=== PATIENT | male | born 1975 | race Caucasian/White ===

== ENCOUNTER 2021-05-21 23:02 | Emergency (ER) | payer OTHER ==
[~2021-05-21] VITALS: Ht 193 cm; Wt 110.3 kg
--- NOTE | 2021-05-22 00:23 | PHYS DOC ---
General Adult EDM: Chief Complaint: CHEST PAIN HPI: HPI: " I woke up on Monday with a crick in my neck.. and it gradually got worse an worse until ..it started running down into my Lt. shoulder and arm.. maybe a little in my Lt upper chest... "..I do have a sore throat.. too..." Patient is a 46 year old male who presents with above hx and complaints Lt arm, chest and neck since awaken on Monday. Patient denies any history of neck injury. Patient denies any recent travel. No specific ill contacts. Patient denies any history of trauma. No history immunosuppression. Patient does smoke. Patient states his throats been also very sore since Monday. Has not had COVID vaccination. Not had flu vaccination. Has not had Pneumovax. Patient does drink alcohol daily. Patient normally follows with Dr. Hickman Review of Systems: Review of Systems: Constitutional: Denies fever or chills Eyes: Denies change in visual acuity HENT: Complains of sore throat Respiratory: Denies cough or shortness of breath Cardiovascular: Denies chest pain or edema GI: Denies abdominal pain, nausea, vomiting, bloody stools or diarrhea : Denies dysuria Musculoskeletal: Complains of left neck and shoulder pain Integument: Denies rash Neurologic: Denies headache, focal weakness or sensory changes Endocrine: Denies polyuria or polydipsia Lymphatic: Denies swollen glands Psychiatric: Denies depression or anxiety Family History: Family History: Noncontributory to presentation Current Medications: Current Meds: See nursing for home meds Allergies: Allergies: Allergies Coded Allergies Type Severity Reaction Last Updated Verified No Known Drug Allergies 05/22/21 No Physical Exam: PE: Constitutional: Moderate acute distress, non-toxic appearance. [] HENT: Normocephalic, atraumatic, bilateral external ears normal, oropharynx moist, injected pharynx no oral exudates, nose normal. [] Eyes: PERRLA, EOMI, conjunctiva normal, no discharge. [] Neck: Decreased range of motion, left trapezius spasms and tenderness, no stri анна. [] Cardiovascular:Heart rate regular rhythm, no murmur [] Lungs & Thorax: Bilateral breath sounds equal apex with scattered wheezes throughout on Auscultation [] Abdomen: Bowel sounds normal, soft, no tenderness, no masses, no pulsatile masses. [] Skin: Warm, dry, no erythema, no rash. [] Back: No tenderness, no CVA tenderness. [] Extremities: No tenderness, no cyanosis, no clubbing, ROM intact, no edema. [] No cording appreciated Neurologic: Alert and oriented X 3, normal motor function, normal sensory function, no focal deficits noted. [] Psychologic: Affect normal, judgement normal, mood normal. [] EKG: EKG: My interpretation EKG shows a sinus rhythm at 89 bpm. No acute morphology. Time of EKG is 00 18 minutes [] Radiology/Procedures: Radiology/Procedures: [[address] [address] IMAGING REPORT Signed PATIENT: MISSY ROTHMAN ACCOUNT: [id number] : 1975 LOCATION: ER AGE: 46 SEX: M EXAM STATUS: REG ER ORD. PHYSICIAN: RIK MEJIAS MD REASON: cervical neuropathy symptoms PROCEDURE: CT CERVICAL SPINE WO CONTRAST CT C-Spine without contrast: Clinical History: Reason: cervical neuropathy symptoms / Spl. Instructions: / History: Technique: Axial helical images of the cervical spine were obtained without contrast, axial coronal and sagittal reconstruction was performed. Findings: There is no loss of vertebral body stature. There is no prevertebral soft tissue swelling. The vertebral bodies are well aligned. The C1-C2 relationship is normal. The visualized osseous structures appear normal. 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 There is a posterior disc bulge at C6-C7 which is eccentric to the left and causes flattening of CSF anterior to the cord is mild impression on the anterior surface the cervical cord on the left and crowding the lateral recess on the left. Impression: C6-C7 disc bulge causing central stenosis and likely compressing of the C7 nerve root before it enters the neuroforamen. No acute findings. Clinical correlation suggested. End impression PQRS Compliance Statement: One or more of the following individualized dose reduction techniques were utilized for this examination: 1. Automated exposure control 2. Adjustment of the mA and/or kV according to patient size 3. Use of iterative reconstruction technique Electronically signed by: Jermaine Sullivan III, MD (05/22/2021 1:28 AM) [facility] DICTATED AND SIGNED BY: JERMAINE SULLIVAN III, MD DATE: 05/22/21 0124 CC: RIK MEJIAS MD; KENDRICK HICKMAN MD ~MTH0 0 ][place] [address] IMAGING REPORT Signed PATIENT: MISSY ROTHMAN ACCOUNT: [id number] : 1975 LOCATION: ER AGE: 46 SEX: M EXAM STATUS: REG ER ORD. PHYSICIAN: RIK MEJIAS MD REASON: cp PROCEDURE: CHEST PA & LATERAL XR CHEST 2V Technique: PA and lateral views of the chest were obtained. Clinical History: Reason: cp / Spl. Instructions: / History: Comparison: None. Findings: The heart and pulmonary vasculature appear within normal limits. The lungs are clear. The pleural margins are clear. Impression: No acute chest process is seen. Electronically signed by: Jermaine Sullivan III, MD (05/22/2021 1:46 AM) [facility] DICTATED AND SIGNED BY: JERMAINE SULLIVAN III, MD DATE: 05/22/21 0145 CC: RIK MEJIAS MD; KENDRICK HICKMAN MD ~MTH0 0 Heart Score: C/O Chest Pain: Yes HEART Score for Chest Pain: HEART Score for Chest Pain Response (Comments) Value History Slighlty/Non-Suspicious 0 ECG Normal 0 Age < 45 0 Risk Factors 1 or 2 Risk Factors 1 Troponin < Normal Limit 0 Total 1 Risk Factors: Risk Factors: DM, Current or recent (<one month) smoker, HTN, HLP, family history of CAD, obesity. Risk Scores: Score 0 - 3: 2.5% MACE over next 6 weeks - Discharge Home Score 4 - 6: 20.3% MACE over next 6 weeks - Admit for Clinical Observation Score 7 - 10: 72.7% MACE over next 6 weeks - Early Invasive Strategies Course & Med Decision Making: Course & Med Decision Making Pertinent Labs and Imaging studies reviewed. (See chart for details) Pt declines second EKG and Trop. Patient gargle Listerine 3-4 times a day. Patient take Keflex 500 mg 3 times a day. Patient take Tylenol and ibuprofen for pain. Patient follow-up primary care. Patient return if any concerns. Patient encouraged to reduce his alcohol intake. Patient to follow-up with neurosurgery to review CT findings of cervical neuropathy particularly at C6 and 7 level. Patient to follow-up with Dr. Hickman. Patient take Keflex 10 mg for 3 times a day for muscle spasms. Impression: 1. 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 Pharyngitis- suspect strep 3. Tobacco use 4. Alcohol use alcohol level 174 5. Mild elevation in AST at 112 and ALT 126 [] Dragon Disclaimer: Dragon Disclaimer: This electronic medical record was generated, in whole or in part, using a voice recognition dictation system. Departure Departure: Referrals: KENDRICK HICKMAN MD (PCP) Scripts Cyclobenzaprine Hcl (CYCLOBENZAPRINE HCL) 10 Mg Tablet 10 MG PO TID for muscle spasms, #30 TAB Prov: RIK MEJIAS MD 05/22/21 Cephalexin (KEFLEX) 500 Mg Capsule 500 MG PO TID for strept.infection for 7 Days, #21 CAP Prov: RIK MEJIAS MD 05/22/21 Dragon Disclaimer This chart was dictated in whole or in part using Voice Recognition software in a busy, high-work load, and often noisy Emergency Department environment. It may contain unintended and wholly unrecognized errors or omissions. Dragon Disclaimer This chart was dictated in whole or in part using Voice Recognition software in a busy, high-work load, and often noisy Emergency Department environment. It may contain unintended and wholly unrecognized errors or omissions. RIK MEJIAS MD May 22, 2021 00:23
[2021-05-22] MEDS ORDERED: cefTRIAXone SODIUM 1 GM VIAL ONE (00:57)
[2021-05-22] MEDS ORDERED: IV NORMAL SALINE 50ML 50 ML ONE (00:57)
[2021-05-22] MEDS ORDERED: ORPHENADRINE CITRATE 60 MG/2 ML VIAL. IV ONE (01:00)
[2021-05-22] MEDS ORDERED: KETOROLAC 30 MG/ML VIAL. IVP ONE (01:00)
[2021-05-22] MEDS ORDERED: MORPHINE SULFATE 10 MG/ML SYRINGE. SQ ONE (01:00)
[2021-05-22 01:27] LABS: CALCIUM 8.7 mg/dL (8.5-10.1); CREATININE 0.8 mg/dL (0.7-1.3); GFR 104.1
[2021-05-22] MEDS ORDERED: CEPH500C PO (01:27)
[2021-05-22 01:28] LABS: BARBITURATES NEG (NEG); BENZODIAZEPINES NEG (NEG); CANNABINOIDS NEG (NEG); COCAINE NEG (NEG); METHADONE NEG (NEG); OPIATES NEG (NEG); PHENCYCLIDINE NEG (NEG)
--- NOTE | 2021-05-22 01:30 | RAD ---
CT C-Spine without contrast: Clinical History: Reason: cervical neuropathy symptoms / Spl. Instructions: / History: Technique: Axial helical images of the cervical spine were obtained without contrast, axial coronal and sagittal reconstruction was performed. Findings: There is no loss of vertebral body stature. There is no prevertebral soft tissue swelling. The vert ebral bodies are well aligned. The C1-C2 relationship is normal. The visualized osseous structures a ppear normal. 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 There is a posterior disc bulge at C6-C7 which is eccentric to the left and causes flattening of CSF anterior to the cord is mild impression on the anterior surface the cervical cord on the left and veterinary microbiologist wding the lateral recess on the left. Impression: C6-C7 disc bulge causing central stenosis and likely compressing of the C7 nerve root before it enter s the neuroforamen. No acute findings. Clinical correlation suggested. End impression PQRS Compliance Statement: One or more of the following individualized dose reduction techniques were utilized for this examinat ion: 1. Automated exposure control 2. Adjustment of the mA and/or kV according to patient size 3. Use of iterative reconstruction technique Electronically signed by: Ascencion Branham III, MD (05/22/2021 1:28 AM) [facility]
[2021-05-22 01:32] LABS: ALBUMIN 4.1 g/dL (3.4-5.0); ALBUMIN/GLOBULIN RATIO 1.2 (1.0-1.7); TOTAL BILIRUBIN 0.4 mg/dL (0.2-1.0); TOTAL PROTEIN 7.5 g/dL (6.4-8.2)
[2021-05-22 01:34] LABS: BACTERIA,URINE FEW /HPF (0-FEW); BILIRUBIN,URINE NEG (NEG); CLARITY,URINE CLEAR; COLOR,URINE YELLOW; GLUCOSE,URINE NEG (NEG); NITRITE,URINE NEG (NEG); RBC,URINE 0 /HPF (0-2); SQUAMOUS EPITHELIAL CELL,UR OCC /LPF; UROBILINOGEN,URINE 0.2 mg/dL (0.2 mg/dL)
[2021-05-22 01:35] LABS: BASO # 0.1 x10^3/uL (0.0-0.2); BASO % 1 % (0-3); EOS # 0.1 x10^3/uL (0.0-0.7); EOS % 2 % (0-3); HEMATOCRIT 45.4 % (39.0-53.0); HEMOGLOBIN 15.9 g/dL (13.0-17.5); LYMPH # 3.1 x10^3/uL (1.0-4.8); LYMPH % 48 % (24-48); MEAN CORPUSCULAR HEMOGLOBIN 34 pg (25-35); MEAN CORPUSCULAR HGB CONC 35 g/dL (31-37); MEAN CORPUSCULAR VOLUME 96 fL (79-100); MONO # 0.7 x10^3/uL (0.0-1.1); MONO % 12 % (0-9); NEUT # 2.4 x10^3uL (1.8-7.7); NEUT % 38 % (31-73); PLATELET COUNT 149 x10^3/uL (140-400); RED BLOOD COUNT 4.72 x10^6/uL (4.30-5.70); RED CELL DISTRIBUTION WIDTH 14.2 % (11.5-14.5); WHITE BLOOD COUNT 6.4 x10^3/uL (4.0-11.0)
[2021-05-22 01:36] LABS: AMPHETAMINE/METHAMPHETAMINE NEG (NEG)
--- NOTE | 2021-05-22 01:48 | RAD ---
XR CHEST 2V Technique: PA and lateral views of the chest were obtained. Clinical History: Reason: cp / Spl. Instructions: / History: Comparison: None. Findings: The heart and pulmonary vasculature appear within normal limits. The lungs are clear. The pleural ma rgins are clear. Impression: No acute chest process is seen. Electronically signed by: Ascencion Branham III, MD (05/22/2021 1:46 AM) [facility]
[2021-05-22 01:49] LABS: INFLUENZA A PATIENT NEGATIVE (NEGATIVE); INFLUENZA B PATIENT NEGATIVE (NEGATIVE)
[2021-05-22] MEDS ORDERED: IV RINGERS SOLUTION,LACTATED 1,000 ML IV ONE (02:00)
[2021-05-22] MEDS ORDERED: CYCL10TA19 PO (02:25)
[2021-05-22 02:35] VITALS: BP 160/94
--- NOTE | 2021-05-22 04:05 | EKG ---
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
== END 2021-05-22 02:40 | disposition home or self-care (01) ==
LOC: ER 23:02
DX: M54.12 Radiculopathy, cervical region (principal); J02.9 Acute pharyngitis, unspecified; F10.10 Alcohol abuse, uncomplicated; R74.9 Abnormal serum enzyme level, unspecified; Z20.822 Contact with and (suspected) exposure to COVID-19; Y90.6 Blood alcohol level of 120-199 mg/100 ml
CPT/HCPCS: 36415; 71046; 72125; 80053; 80307; 81001; 84484; 85025; 87070; 87426; 87804; 87880; 93005; 96365; 96372; 96375; 99285; C9803; G0480; J0696; J1885; J2270; J2360; J7120; U0003

== ENCOUNTER 2021-06-03 10:39 | Emergency (ER) | payer OTHER ==
[~2021-06-03] VITALS: Ht 193 cm; Wt 110.3 kg
[~2021-06-03 10:39] MED LIST: CEPH500C PO; CYCL10TA19 PO
[2021-06-03] MEDS ORDERED: ASPIRIN CHEWABLE 81 MG TABLET. PO ONE (11:15)
[2021-06-03 11:54] LABS: BASO # 0.1 x10^3/uL (0.0-0.2); BASO % 1 % (0-3); EOS # 0.2 x10^3/uL (0.0-0.7); EOS % 2 % (0-3); HEMATOCRIT 50.7 % (39.0-53.0); HEMOGLOBIN 17.5 g/dL (13.0-17.5); LYMPH % 29 % (24-48); MEAN CORPUSCULAR HEMOGLOBIN 34 pg (25-35); MEAN CORPUSCULAR HGB CONC 35 g/dL (31-37); MEAN CORPUSCULAR VOLUME 98 fL (79-100); MONO # 1.3 x10^3/uL (0.0-1.1); MONO % 13 % (0-9); NEUT # 5.7 x10^3uL (1.8-7.7); NEUT % 55 % (31-73); PLATELET COUNT 210 x10^3/uL (140-400); RED BLOOD COUNT 5.17 x10^6/uL (4.30-5.70); RED CELL DISTRIBUTION WIDTH 14.1 % (11.5-14.5); WHITE BLOOD COUNT 10.3 x10^3/uL (4.0-11.0)
--- NOTE | 2021-06-03 12:30 | RAD ---
EXAMINATION: CT HEAD/BRAIN WO CLINICAL HISTORY: Sudden onset dizziness with headache TECHNIQUE: Serial axial images without IV contrast were obtained from the vertex to the foramen magnu m. CT Dose Reduction Employed: One or more of the following individualized dose reduction techniques wer e utilized for this examination: 1. Automated exposure control 2. Adjustment of the mA and/or kV ac cording to patient size 3. Use of iterative reconstruction technique. COMPARISON: None FINDINGS: Acute Change: No evidence of an acute infarct or other acute parenchymal process. Hemorrhage: No evidence of acute intracranial hemorrhage. Mass Lesion/Mass Effect: No evidence of intracranial mass or extraaxial fluid collection. No signific ant mass effect. Parenchyma: Parenchyma within normal limits for age. Ventricles: Ventricles within normal limits for age. Paranasal Sinuses and Skull Base: Visualized paranasal sinuses clear. Visualized skull base and soft tissues unremarkable. IMPRESSION: No evidence of acute intracranial abnormality. Electronically signed by: Milo King DO (06/03/2021 12:27 PM) [id number]
--- NOTE | 2021-06-03 12:37 | RAD ---
EXAM: AP View of the chest DATE: 06/03/2021 12:04 PM INDICATION: Reason: Chest tightness / Spl. Instructions: / History: COMPARISON: 05/22/2021 FINDINGS: The heart is not enlarged. Mediastinal and hilar contours are normal. No focal parenchymal airspace opacity. No pleural effusion or pneumothorax. IMPRESSION: 1. No radiographic evidence for acute cardiopulmonary process. Electronically signed by: Ney Avalos MD (06/03/2021 12:35 PM) [id number]
[2021-06-03 12:38] LABS: ANION GAP 9 (6-14); BLOOD UREA NITROGEN 20 mg/dL (8-26); BUN/CREATININE RATIO 22 (6-20); CALCIUM 9.6 mg/dL (8.5-10.1); CARBON DIOXIDE 25 mmol/L (21-32); CHLORIDE 102 mmol/L (98-107); CREATININE 0.9 mg/dL (0.7-1.3); GFR 90.8; GLUCOSE 118 mg/dL (70-99); POTASSIUM 3.9 mmol/L (3.5-5.1); SODIUM 136 mmol/L (136-145)
[2021-06-03 12:54] LABS: ALBUMIN 4.2 g/dL (3.4-5.0); ALK PHOS 97 U/L (46-116); ALT (SGPT) 199 U/L (16-63); AST (SGOT) 77 U/L (15-37); TOTAL BILIRUBIN 0.5 mg/dL (0.2-1.0); TOTAL PROTEIN 8.3 g/dL (6.4-8.2)
[2021-06-03 12:59] LABS: LIPASE 114 U/L (73-393)
[2021-06-03] MEDS ORDERED: IOHEXOL 350 MG/ML 100 ML VIAL. IV ONE (13:00)
--- NOTE | 2021-06-03 13:36 | RAD ---
CTA CHEST INDICATION: Elevated D-dimer, PE study. Dyspnea, chest tightness Comparison: None. TECHNIQUE: Following the uneventful administration of intravenous contrast, axial CT sections were ob tained through the lungs and upper abdomen. Multiplanar reconstructions and MIP images were obtained. PQRS compliance statement: One or more of the following individualized dose reduction techniques were utilized for this examinat ion: 1. Automated exposure control 2. Adjustment of the mA and/or kV according to patient size 3. Use of iterative reconstruction technique FINDINGS: Pulmonary arteries: No evidence of pulmonary thromboembolic disease. Lungs and Airways: No pulmonary mass or consolidation. No abnormality of the central airways. Pleura: The pleural spaces are normal. Heart and Mediastinum: The visualized thyroid is normal in size and attenuation. No axillary or supra clavicular lymphadenopathy. No mediastinal, hilar or retrocrural lymphadenopathy. The heart and peric ardium are within normal limits. The great vessels of the thorax are normal. Abdomen: Limited images through the upper abdomen show no abnormality of the visualized organs. Bones and Soft Tissues: No acute osseous abnormality. Gynecomastia. IMPRESSION: 1. No evidence of pulmonary thromboembolic disease. 2. No pulmonary mass or consolidation Electronically signed by: Fuentes Abad MD (06/03/2021 1:34 PM) [facility]
[2021-06-03] MEDS ORDERED: IV NORMAL SALINE 1,000ML 1,000 ML IV ONE (13:45)
[2021-06-03] MEDS ORDERED: ONDANSETRON PF 4 MG/2 ML VIAL. IVP ONE (14:15)
[2021-06-03] MEDS ORDERED: KETOROLAC 30 MG/ML VIAL. IVP ONE (14:15)
--- NOTE | 2021-06-03 15:31 | PHYS DOC ---
Past History Additional Past Medical Histor: cirrhosis of liver (MISSY CASTANON APRN) Past Surgical History: No Surgical History (MISSY CASTANON APRN) Alcohol Use: Heavy (MISSY CASTANON APRN) Adult General Chief Complaint Chief Complaint: CHEST PAIN HPI HPI Patient is a 46-year-old male who presents emergency department complaining of chest tightness with dizziness and a slight headache he rates as a 3 out of 10. Patient denies actual chest pain. Patient reports symptoms started at approximately 830 this morning while he was sitting at home. Patient denies cough or congestion, denies recent fever or chills. Patient reports he does not have shortness of breath however the chest tightness makes him feel as if he cannot take a deep breath. Patient denies abdominal pain, nausea, vomiting, or diarrhea. Patient reports a history of chronic neck pain with a CT 6/7 disc herniation for which he takes tramadol and cyclobenzaprine for. Patient denies allergies to medications, reports he takes Motrin as needed for breakthrough pain at home and is on no other prescription medications. Patient denies other physical complaints or physical concerns. Patient does report cigarette smoker, denies alcohol consumption, denies illicit drug use. (MISSY CASTANON APRN) Review of Systems Review of Systems 14 body systems of review of systems have been reviewed. See HPI for pertinent positives and negative responses, otherwise all other systems are negative, nonpertinent or noncontributory. Constitutional: Negative except as outlined in HPI above. Skin: Negative except as outlined in HPI above. Eyes: Negative except as outlined in HPI above. HENT: Negative except as outlined in HPI above. Respiratory: Negative except as outlined in HPI above. Cardiovascular: Negative except as outlined in HPI above. GI: Negative except as outlined in HPI above. : Negative except as outlined in HPI above. Musculoskeletal: Negative except as outlined in HPI above. Integument: Negative except as outlined in HPI above. Neurologic: Negative except as outlined in HPI above. Endocrine: Negative except as outlined in HPI above. Lymphatic: Negative except as outlined in HPI above. Psychiatric: Negative except as outlined in HPI above. (MISSY CASTANON APRN) Current Medications Current Medications Current Medications Medications (Trade) Dose Ordered Sig/Im Start Time Stop Time Status Last Admin Dose Admin Aspirin (Aspirin Chewable) 324 mg 1X ONCE 06/03/21 11:15 12/2/21 11:23 DC 06/03/21 12:52 324 MG Iohexol (Omnipaque 350 Mg/ml) 100 ml 1X ONCE 06/03/21 13:00 06/03/21 13:02 DC 06/03/21 13:17 100 ML Ketorolac Tromethamine (Toradol 30mg Vial) 30 mg 1X ONCE 06/03/21 14:15 06/03/21 14:16 DC 06/03/21 14:31 30 MG Ondansetron HCl (Zofran) 4 mg 1X ONCE 06/03/21 14:15 06/03/21 14:16 DC 06/03/21 14:31 4 MG Sodium Chloride 1,000 ml @ 1,000 mls/hr 1X ONCE 06/03/21 13:45 06/03/21 14:44 DC 06/03/21 13:45 1,000 MLS/HR (MISSY CASTANON APRN) Allergies Allergies Allergies Coded Allergies Type Severity Reaction Last Updated Verified haloperidol Allergy Unknown 06/03/21 Yes (MISSY CASTANON APRN) Physical Exam Physical Exam Constitutional: Well developed, well nourished, no acute distress, non-toxic appearance. 46-year-old male in no apparent distress. HENT: Normocephalic, atraumatic. Eyes: Conjunctiva normal, no discharge. Neck: Normal range of motion, no stridor. Cardiovascular: No cyanosis appreciated, distal cap refill less than 2 seconds. Tachycardic rate. Heart sounds S1-S2 to auscultation. Lungs & Thorax: Patient is in no respiratory distress, no audible adventitious lung sounds appreciated. Normal work of breathing, no adventitious lung sounds appreciated per auscultation all lung bucio. Abdomen: Nontender, no abnormalities noted. Skin: Warm, dry, no erythema, no rash. Back: No tenderness, no deformities. Extremities: No tenderness, no cyanosis, no clubbing, ROM intact, no edema. Neurologic: Alert and oriented X 3, normal motor function, normal sensory function, no focal deficits noted. Psychologic: Affect normal, judgement normal, mood normal. (MISSY CASTANON APRN) Current Patient Data Vital Signs Vital Signs Date Time Temp Pulse Resp B/P (MAP) Pulse Ox O2 Delivery O2 Flow Rate FiO2 12/2/21 11:00 97.9 102 18 130/99 (109) 96 Lab Results Laboratory Tests Test 06/03/21 11:30 06/03/21 14:19 White Blood Count 10.3 x10^3/uL (4.0-11.0) Red Blood Count 5.17 x10^6/uL (4.30-5.70) Hemoglobin 17.5 g/dL (13.0-17.5) Hematocrit 50.7 % (39.0-53.0) Mean Corpuscular Volume 98 fL (79-100) Mean Corpuscular Hemoglobin 34 pg (25-35) Mean Corpuscular Hemoglobin Concent 35 g/dL (31-37) Red Cell Distribution Width 14.1 % (11.5-14.5) Platelet Count 210 x10^3/uL (140-400) Neutrophils (%) (Auto) 55 % (31-73) Lymphocytes (%) (Auto) 29 % (24-48) Monocytes (%) (Auto) 13 % (0-9) H Eosinophils (%) (Auto) 2 % (0-3) Basophils (%) (Auto) 1 % (0-3) Neutrophils # (Auto) 5.7 x10^3uL (1.8-7.7) Lymphocytes # (Auto) 3.0 x10^3/uL (1.0-4.8) Monocytes # (Auto) 1.3 x10^3/uL (0.0-1.1) H Eosinophils # (Auto) 0.2 x10^3/uL (0.0-0.7) Basophils # (Auto) 0.1 x10^3/uL (0.0-0.2) Prothrombin Time 10.6 SEC (9.4-11.4) Prothrombin Time INR 1.0 (0.9-1.1) D-Dimer (Emily) 0.53 mg/L (0.00-0.50) H Sodium Level 136 mmol/L (136-145) Potassium Level 3.9 mmol/L (3.5-5.1) Chloride Level 102 mmol/L (98-107) Carbon Dioxide Level 25 mmol/L (21-32) Anion Gap 9 (6-14) Blood Urea Nitrogen 20 mg/dL (8-26) Creatinine 0.9 mg/dL (0.7-1.3) Estimated GFR (Cockcroft-Gault) 90.8 BUN/Creatinine Ratio 22 (6-20) H Glucose Level 118 mg/dL (70-99) H Calcium Level 9.6 mg/dL (8.5-10.1) Total Bilirubin 0.5 mg/dL (0.2-1.0) Aspartate Amino Transferase (AST) 77 U/L (15-37) H Alanine Aminotransferase (ALT) 199 U/L (16-63) H Alkaline Phosphatase 97 U/L (46-116) Creatine Kinase 34 U/L (39-308) L Creatine Kinase MB (Mass) 0.5 ng/mL (0.0-3.6) Creatine Kinase MB Relative Index % (0-4) Troponin I High Sensitivity 6 ng/L (4-75) 7 ng/L (4-75) LW-Svm-W-Type Natriuretic Peptide 5 pg/mL (0-124) Total Protein 8.3 g/dL (6.4-8.2) H Albumin 4.2 g/dL (3.4-5.0) Albumin/Globulin Ratio 1.0 (1.0-1.7) Lipase 114 U/L (73-393) (MISSY CASTANON APRN) EKG EKG EKG performed at 1046 by ED nursing staff shows a sinus tachycardia without other ectopy, heart rate 112 bpm, parable 0.142, QTc interval 0.141, no acute STEMI, no ACS, no acute ischemia appreciated, EKG interpreted by ED attending physician Dr. Chavez. (MISSY CASTANON APRN) Radiology/Procedures Radiology/Procedures REASON: Chest tightness PROCEDURE: PORTABLE CHEST 1V EXAM: AP View of the chest DATE: 06/03/2021 12:04 PM INDICATION: Reason: Chest tightness / Spl. Instructions: / History: COMPARISON: 05/22/2021 FINDINGS: The heart is not enlarged. Mediastinal and hilar contours are normal. No focal parenchymal airspace opacity. No pleural effusion or pneumothorax. IMPRESSION: 1. No radiographic evidence for acute cardiopulmonary process. Electronically signed by: Ney Avalos MD (06/03/2021 12:35 PM) [id number] REASON: Sudden onset dizziness with headache PROCEDURE: CT HEAD WO CONTRAST EXAMINATION: CT HEAD/BRAIN WO CLINICAL HISTORY: Sudden onset dizziness with headache TECHNIQUE: Serial axial images without IV contrast were obtained from the vertex to the foramen magnum. CT Dose Reduction Employed: One or more of the following individualized dose reduction techniques were utilized for this examination: 1. Automated exposure control 2. Adjustment of the mA and/or kV according to patient size 3. Use of iterative reconstruction technique. COMPARISON: None FINDINGS: Acute Change: No evidence of an acute infarct or other acute parenchymal process. Hemorrhage: No evidence of acute intracranial hemorrhage. Mass Lesion/Mass Effect: No evidence of intracranial mass or extraaxial fluid collection. No significant mass effect. Parenchyma: Parenchyma within normal limits for age. Ventricles: Ventricles within normal limits for age. Paranasal Sinuses and Skull Base: Visualized paranasal sinuses clear. Visualized skull base and soft tissues unremarkable. IMPRESSION: No evidence of acute intracranial abnormality. Electronically signed by: Milo King DO (06/03/2021 12:27 PM) [id number] (MISSY CASTANON APRN) Heart Score C/O Chest Pain: Yes HEART Score for Chest Pain: HEART Score for Chest Pain Response (Comments) Value History Slighlty/Non-Suspicious 0 ECG Normal 0 Age >45 - < 65 1 Risk Factors No Risk Factors 0 Troponin < Normal Limit 0 Total 1 Risk Factors: Risk Factors: DM, Current or recent (<one month) smoker, HTN, HLP, family history of CAD, obesity. Risk Scores: Risk Factors: DM, Current or recent (<one month) smoker, HTN, HLP, family history of CAD, obesity. (MISSY CASTANON APRN) Course & Med Decision Making Course & Med Decision Making Pertinent Labs and Imaging studies reviewed. (See chart for details) 46-year-old male, vital signs reviewed, resents emerged from concerning chest tightness with dizziness sudden onset approximately 830 this morning. Physical examination unremarkable other than tachycardia, will order CBC, CMP, troponin I serial enzymes, cardiac isoenzymes, BNP pro NT, D-dimer, CT head, chest x-ray. 1 L normal saline, 30 mg Toradol, [address] head chest x-ray unremarkable however D-dimer is elevated, will order CT a ngio chest. Patient's serum labs unremarkable other than elevated D-dimer, patient's CT angio chest did not reveal concerning findings of infectious process or pulmonary emboli or other cardiopulmonary dyscrasias. Upon reevaluation of the patient, patient reports he feels much better and no longer has feelings of chest tightness or shortness of breath or dizziness or headache. Patient feels he can go home now. Patient's high-sensitivity troponin I nonconcerning for NSTEMI from initial and repeat after 3 hours. This is unlikely a cardiac or respiratory event. Patient is asking for work excuse to return to work tomorrow. We will diagnosed with chest tightness, and dizziness. Discussed with patient strict follow-up with primary care soon, return to ER precautions or concerns, cigarette smoking cessation, patient is amenable to and gave verbal understanding of ED discharge planning. Discussed with the patient all findings and diagnostic testing as well as the need to follow-up with their primary care provider for further evaluation and treatment or return to the ED if any new or worsening symptoms. Strict return precautions were also discussed at length, the patient voiced understanding and agreement with the discharge planning. The patient was nontoxic in appearance, in no apparent distress, and hemodynamically stable at the time of disposition. (MISSY CASTANON APRN) Dragon Disclaimer Dragon Disclaimer This electronic medical record was generated, in whole or in part, using a voice recognition dictation system. (MISSY CASTANON APRN) Departure Departure: Impression: Primary Impression: Chest tightness Additional Impression: Dizziness Disposition: 01 HOME / SELF CARE / HOMELESS Condition: GOOD Referrals: KENDRICK HICKMAN MD (PCP) Patient Instructions: Chest Pain (Nonspecific)-Brief, Dizziness Additional Instructions: You were seen today in the emergency department for chest tightness with dizziness. Your lab work did not show concerning findings except for an elevated D-dimer which may indicate an increased possibility of a blood clot in your lung. Therefore a CT scan/angiogram of your chest was performed today, there were no concerning findings of a pulmonary embolus, a blood clot in your lung, or any pulmonary infectious process. The CT scan of your head did not show any signs of tumors or head bleeds or strokes. You were given IV normal saline along with an IV pain medication and antinausea medication which you have reported your symptoms have resolved and you feel much better now. While your emergency department work-up did not show concerning findings this does not mean that there is nothing wrong. Please follow-up with your primary care physician for ongoing symptoms and for ongoing pain management of your cervical disc bu lging problems, there may be a possibility this bulging disc is causing some of your symptoms. Please return to the emergency department for worsening symptoms or other concerns. Thank you for visiting our Emergency Department. It was a pleasure taking care of you today in the emergency department and we appreciate you trusting us with your care. If any additional problems come up don't hesitate to return to visit us. Please follow up with your primary care provider so they can plan additional care if needed and know about the problem that you had. If symptoms worsen come back to the Emergency Department. Any concerning symptoms that start such as chest pain, shortness of air, weakness or numbness on one side of the body, running high fevers or any other concerning symptoms return to the ER. EMERGENCY DEPARTMENT GENERAL DISCHARGE INSTRUCTIONS Thank you for coming to [facility] (ED) today and trusting us with you care. We trust that you had a positivie experience in our Emergency Department. If you wish to speak to the department management, you may call the director at [phone]. YOUR FOLLOW UP INSTRUCTIONS ARE FOLLOWS: 1. Do you have a private Doctor? If you do not have a private doctor, please ask for a resource list of physicians or clinics that may be able to assist you with follow up care. 2. The Emergency Physician has interpreted your x-rays. The X-Ray specialist will also review them. If there is a change in the findings, you will be notified in 48 hours when at all possible. 3. A lab test or culture has been done, your results will be reviewed and you will be notified if you need a change in treatment. ADDITIONAL INSTRUCTIONS AND INFORMATION: 1. Your care today has been supervised by a physician who is specially trained in emergency care. Many problems require more than one evaluation for a complete diagnosis and treatment. We recommend that you schedule your follow up appointment as recommended to ensure complete treatment of you illness or injury. If you are unable to obtain follow up care and continue to have a problem, or if your condition worsens, we recommend that you return to the ED. 2. We are not able to safely determine your condition over the phone nor are we able to give sound medical advice over the phone. For these safety reasons, if you call for medical advice we will ask you to come to the ED for further evaluation. 3. If you have any questions regarding these discharge instructions please call the ED at [phone]. SAFETY INFORMATION: In the interest of safety, wellness, and injury prevention; we encourage you to wear your sealbelt, if you smoke; quite smoking, and we encourage family to use a protective helmet for bicycling and other sporting events that present an increased risk for head injury. IF YOUR SYMPTOMS WORSEN OR NEW SYMPTOMS DEVELOP, OR YOU HAVE CONCERNS ABOUT YOUR CONDITION; OR IF YOUR CONDITION WORSENS WHILE YOU ARE WAITING FOR YOUR FOLLOW UP APPOINTMENT; EITHER CONTACT YOUR PRIMARY CARE DOCTOR, THE PHYSICIAN WHOSE NAME AND NUMBER YOU WERE GIVEN, OR RETURN TO THE ED IMMEDIATELY. Attending Signature Attending Signature I have reviewed the PA/FOAMITE MIXER's note and plan of care. I was available for consultation as needed during the patient's visit in the emergency department. I agree with the clinical impression, plan, and disposition. (MISSY CHAVEZ DO) Problem Qualifiers MISSY CASTANON APRN Jun 03, 2021 15:31 MISSY CHAVEZ DO Jun 04, 2021 15:27
[2021-06-03 16:45] VITALS: BP 129/79
--- NOTE | 2021-06-04 06:58 | EKG ---
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
--- NOTE | 2021-06-04 07:33 | EKG ---
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
== END 2021-06-03 16:45 | disposition home or self-care (01) ==
LOC: ER 10:39
DX: R07.89 Other chest pain (principal); R42 Dizziness and giddiness; R51.9 Headache, unspecified; F10.20 Alcohol dependence, uncomplicated; Z88.8 Allergy status to other drugs, medicaments and biological substances; Y90.9 Presence of alcohol in blood, level not specified
CPT/HCPCS: 36415; 70450; 71045; 71275; 80053; 82553; 83690; 83880; 84484; 85025; 85379; 85610; 93005; 96361; 96374; 96375; 99285; J1885; J2405; J7030; Q9967